=== PATIENT | female | born 1995 | race Caucasian/White ===

== ENCOUNTER 2019-06-13 15:39 | Emergency (ER) | payer BC ==
[2019-06-13 16:16] VITALS: BP 121/76
--- NOTE | 2019-06-13 16:24 | UC ---
Eye Complaint HPI - HPI Summary HPI Summary: Cold symptoms for the past week but this morning right eye with greenish/yellow drainage and crusted shut. - History of Current Complaint Chief Complaint: UCGeneralIllness Stated Complaint: COLD, POSS PINK EYE Time Seen by Provider: 06/13/19 16:07 Hx Obtained From: Patient ?: No Onset/Duration: Gradual Onset Timing: Constant Severity Initially: Mild Severity Currently: Mild Pain Intensity: 4 Location of Injury: Other - No injury Aggravating Factor(s): Nothing Alleviating Factor(s): Nothing Associated Signs And Symptoms: Positive: Drainage (Purulent) - Crusty green/ yellow drainage today, no vision changes - Allergies/Home Medications Allergies/Adverse Reactions: Allergies Allergy/AdvReac Type Severity Reaction Status Date / Time No Known Allergies Allergy Verified 06/13/19 16:16 Home Medications: Home Medications Levonorgestrel (Iud) [Kyleena IUD] 17.5 mcg IU ONCE 06/13/19 [History Confirmed 06/13/19] PMH/Surg Hx/FS Hx/Imm Hx Previously Healthy: Yes - Surgical History Surgical History: None - Family History Known Family History: Positive: Non-Contributory - Social History Occupation: Student Lives: Dormitory/Roommates Alcohol Use: Rare Substance Use Type: Marijuana Smoking Status (MU): Never Smoked Tobacco Review of Systems All Other Systems Reviewed And Are Negative: Yes Eyes: Positive: Drainage, Eye Redness ENT: Positive: Nasal Discharge Is Patient Immunocompromised?: No Physical Exam Triage Information Reviewed: Yes Appearance: Well-Appearing, No Pain Distress, Well-Nourished Vital Signs: Initial Vital Signs Temp 99.1 F 06/13/19 16:12 Pulse 83 06/13/19 16:12 Resp 18 06/13/19 16:12 BP 121/76 06/13/19 16:12 Pulse Ox 96 06/13/19 16:12 Vital Signs Reviewed: Yes Eyes: Positive: Conjunctiva Inflamed, Discharge - Yellowish drainage, conjunctivia and sclera injected right eye ENT: Positive: Hearing grossly normal, Pharynx normal, Nasal congestion, Nasal drainage - Clear nasal coryza, TMs normal, Uvula midline Neck: Positive: Supple, Nontender, No Lymphadenopathy Respiratory: Positive: Lungs clear, Normal breath sounds, No respiratory distress, No accessory muscle use Cardiovascular: Positive: RRR, No Murmur, Pulses Normal, Brisk Capillary Refill Musculoskeletal Exam: Normal Neurological Exam: Normal Psychological Exam: Normal Skin Exam: Normal Eye Complaint Course/Dx - Course Course Of Treatment: URI, will treat for bacterial conjunctivitis with a definite follow up with ophthamologist in 3-4 days if no improvement. - Differential Dx/Diagnosis Provider Diagnosis: URI (upper respiratory infection), Conjunctivitis Discharge ED - Sign-Out/Discharge Documenting (check all that apply): Patient Departure All imaging exams completed and their final reports reviewed: No Studies - Discharge Plan Condition: Good Disposition: HOME Prescriptions: Tobramycin 0.3% OPHTH.MARLENE* 1 drop RIGHT EYE Q4H 7 Days #1 btl Patient Education Materials: Conjunctivitis (ED) [facility] - Deejay Hartley MD [Medical Doctor] - Additional Instructions: Good handwashing, Follow up with the ophthomologist in 2-3 days if no improvement - Billing Disposition and Condition Condition: GOOD Disposition: Home - Attestation Statements Provider Attestation: Per institutional requirements, I have reviewed the chart, however, I was not consulted specifically or made aware of this patient by the midlevel provider. I did not personally evaluate, interact with , or disposition this patient.
== END 2019-06-13 16:40 | disposition home or self-care (01) ==
LOC: UCEAST 15:39
DX: J06.9 Acute upper respiratory infection, unspecified (principal); H10.9 Unspecified conjunctivitis
CPT/HCPCS: 99202; G0463